=== PATIENT | female | born 1975 | race Caucasian/White ===

== ENCOUNTER 2024-11-17 15:00 | Emergency (ER) | payer BC, OTHER ==
[~2024-11-17] VITALS: Ht 152.4 cm; Wt 79.5 kg
[2024-11-17] MEDS ORDERED: WELLBUTRIN XL150 M2 PO (15:14)
[2024-11-17] MEDS ORDERED: SERTRALINE HYD100 MG PO (15:15)
[2024-11-17] MEDS ORDERED: Ketorolac 30 MG/ML VIAL IV ONE (15:30)
[2024-11-17 15:50] LABS: BASO # 0.02 K/mm3 (0.02-0.10); EOS # 0.07 K/mm3 (0.04-0.40); EOS % 0.8 % (1.0-5.0); HEMATOCRIT 42.1 % (37.0-47.0); LYMPH# 1.83 K/mm3 (1.50-4.00); MEAN CELL VOLUME 89 fl (78-100); MEAN CORPUSCULAR HEMOGLOBIN 30 pg (27-31); MEAN CORPUSCULAR HGB CONC 33 g/dL (33-37); MONO # 0.48 K/mm3 (0.20-0.80); NEU # 6.08 K/mm3 (1.40-6.50); PLATELET COUNT 294 K/mm3 (130-400); RED BLOOD COUNT 4.73 M/mm3 (4.10-5.30); RED CELL DISTRIBUTION WIDTH 12.8 % (11.5-14.5); WHITE BLOOD COUNT 8.5 K/mm3 (4.8-10.8)
[2024-11-17 15:58] LABS: ALBUMIN 3.7 g/dL (3.5-5.0)
[2024-11-17 16:01] LABS: TOTAL PROTEIN 6.4 g/dL (6.4-8.3)
[2024-11-17 16:03] LABS: TOTAL BILIRUBIN 0.2 mg/dL (0.2-1.2)
[2024-11-17] MEDS ORDERED: NS 100 ML IV SCH (16:06)
[2024-11-17] MEDS ORDERED: Iohexol 300 - 100 ML VIAL IV ONE (16:06)
[2024-11-17] MEDS ORDERED: fentaNYL 100 MCG/2 ML VIAL IV ONE (16:30)
[2024-11-17 17:30] VITALS: BP 152/96
== END 2024-11-17 17:45 | disposition short-term general hospital (02) ==
LOC: ED 15:00
PROVIDERS: Physician Assistant
DX: K56.609 Unspecified intestinal obstruction, unspecified as to partial versus complete obstruction (principal); Z98.84 Bariatric surgery status
CPT/HCPCS: J1885; J3010; Q9967